=== PATIENT | female | born 1955 | race Caucasian/White ===

== ENCOUNTER → 2021-09-12 | Outpatient (CLI) | payer MEDICARE, SELFPAY ==
--- NOTE | 2021-09-12 08:35 | BI_ITS ---
MAMMOGRAPHY - BILATERAL SCREENING REASON FOR EXAM: Female, 66 years old. Routine annual screening examination. PERTINENT HISTORY: No personal history of breast cancer. Patient does report bruises on both breasts from recent falls. TECHNIQUE: Digital bilateral breast nahtaniel (3D mammographic acquisition) in the CC and MLO projections. 2-D mediolateral oblique (MLO) and craniocaudad (CC) views of both breasts were obtained. CAD: Full Field Digital Mammography with Computer Added Detection was performed. COMPARISON: Bilateral screening mammogram from 03/08/2015, 02/20/2010. FINDINGS: Breast Composition: The breasts are almost entirely fatty. There is a focal asymmetry in the right upper outer breast approximately 6 cm from the nipple. No suspicious calcifications. No other significant abnormalities are identified. BI/SCRN MAMM (CAD)W/NATHANIEL BILAT IMPRESSION: Further imaging evaluation recommended, as described above. (E) Recall Side: Right Breast ASSESSMENT CATEGORY: BIRADS Category 0: Incomplete. Need additional imaging evaluation. A letter regarding these results will be sent to the patient by the facility within 30 days. Approximately 10% of breast cancers are not detected by mammography. A normal mammogram should not delay biopsy of a clinically suspicious abnormality. [id number] Electronically Signed: Riley Paz, at 18:32 EDT ,
== END | disposition home or self-care (01) ==
PROVIDERS: PCP Obstetrics & Gynecology Gynecology; Visit Provider Obstetrics & Gynecology Gynecology
DX: Z12.31 Encounter for screening mammogram for malignant neoplasm of breast (principal)
CPT/HCPCS: 77063; 77067

== ENCOUNTER → 2021-09-14 | Outpatient (CLI) | payer MEDICARE, SELFPAY ==
--- NOTE | 2021-09-14 09:03 | BI_ITS ---
MAMMOGRAPHY - UNILATERAL DIAGNOSTIC: RIGHT BREAST REASON FOR EXAM: Female, 66 years old. Right breast focal asymmetry on screening mammogram. PERTINENT HISTORY: Patient reports that she had recent trauma both breasts with areas of bruising from a recent fall. No personal history of breast cancer. TECHNIQUE: Digital examination. Spot compression views of the focal asymmetry in the right upper outer quadrant were obtained. CAD was not performed on this study. COMPARISON: Screening mammogram from 09/12/2021. Right breast diagnostic ultrasound from same day. FINDINGS: Breast Composition: The breasts are almost entirely fatty. The 0.7 cm focal asymmetry in the right upper outer breast persists on spot compression views. Ultrasound was obtained and demonstrated a minimally focal dilated duct at the 11 o''clock position corresponding to the asymmetry with no correlating mass. Patient reports this is directly in the area of recent trauma and bruising. Although this is a probably benign finding related to recent trauma, given that this is a new finding since prior available mammogram from 03/08/2015, short-term follow-up with mammogram and ultrasound will be obtained in 6 months. No other significant abnormalities are identified. BI/DIAG MAMM W/CAD, UNILAT IMPRESSION: Likely benign unilateral diagnostic mammogram as detailed above. Short-interval follow-up recommended in six months. (C) Recall Side: Right Breast ASSESSMENT CATEGORY: BIRADS Category 3: Probably Benign - Short-Interval Follow-up Suggested. A letter regarding these results will be sent to the patient by the facility within 30 days. Approximately 10% of breast cancers are not detected by mammography. A normal mammogram should not delay biopsy of a clinically suspicious abnormality. Electronically Signed: Riley Paz, at 10:05 EDT ,
--- NOTE | 2021-09-14 09:03 | US_ITS ---
STUDY: ULTRASOUND BREAST - RIGHT REASON FOR EXAM: Female, 66 years old. Abnormal screening mammogram. TECHNIQUE: Axial and longitudinal images of the RIGHT breast were performed with a high resolution ultrasound transducer. # OF IMAGES: 48 COMPARISON: Diagnostic mammogram earlier today, screening mammogram 09/12/2021 FINDINGS: RIGHT Breast: Heterogeneous background echotexture. Multiple longitudinal and transverse ultrasound images of the upper outer quadrant right breast fail to demonstrate a discrete solid or cystic mass is consistent with normal breast parenchyma.: US/Breast Limited Unilateral IMPRESSION: Normal diagnostic mammogram. ASSESSMENT CATEGORY: BIRADS Category 1: Negative. A letter regarding these results will be sent to the patient by the facility within 30 days. Electronically Signed: Hernan Cook MD at 14:15 EDT ,
== END | disposition home or self-care (01) ==
PROVIDERS: PCP Obstetrics & Gynecology Gynecology; Visit Provider Obstetrics & Gynecology Gynecology
DX: R92.8 Other abnormal and inconclusive findings on diagnostic imaging of breast (principal)
CPT/HCPCS: 76642; 77065

== ENCOUNTER → 2022-04-27 | Outpatient (CLI) | payer MEDICARE, SELFPAY ==
--- NOTE | 2022-04-27 14:23 | BI_ITS ---
MAMMOGRAPHY - UNILATERAL DIAGNOSTIC: RIGHT BREAST REASON FOR EXAM: Female, 66 years old. 6 month follow-up examination. PERTINENT HISTORY: Abnormal screening mammogram. TECHNIQUE: Compression spot radiographs of the right breast were obtained. CAD: Full Field Digital Mammography with Computer Added Detection was performed. COMPARISON: Comparison is made with prior study 09/14/2021. FINDINGS: Breast Composition: The breasts are almost entirely fatty. There are no dominant masses or suspicious calcifications. The previously seen 7 mm asymmetry in the anterior slightly upper lateral aspect of the right breast is not seen at this time. No other significant abnormalities are identified. BI/DIAG MAMM W/CAD, UNILAT IMPRESSION: Negative unilateral diagnostic mammogram. Yearly followup mammogram recommended. (A) ASSESSMENT CATEGORY: BIRADS Category 2: Benign. A letter regarding these results will be sent to the patient by the facility within 30 days. Approximately 10% of breast cancers are not detected by mammography. A normal mammogram should not delay biopsy of a clinically suspicious abnormality. Electronically Signed: Alex Cesar MD at 15:33 EST ,
== END | disposition home or self-care (01) ==
PROVIDERS: PCP Obstetrics & Gynecology Gynecology; Visit Provider Obstetrics & Gynecology Gynecology
DX: R92.8 Other abnormal and inconclusive findings on diagnostic imaging of breast (principal); N60.19 Diffuse cystic mastopathy of unspecified breast
CPT/HCPCS: 77061; 77065; G0279

== ENCOUNTER → 2023-03-25 | Outpatient (CLI) | payer MEDICARE, SELFPAY ==
--- NOTE | 2023-03-25 13:30 | RAD_ITS ---
STUDY: X-RAY - LEFT TIBIA AND FIBULA REASON FOR EXAM: Female, 67 years old. Fall TECHNIQUE: 2 view(s) of the tibia and fibula were obtained. COMPARISON: None. FINDINGS: Normal visualized tibia. Normal visualized fibula. Soft tissue swelling. Questionable varicosities. Atherosclerotic calcification. RAD/Tibia & Fibula 2 Views IMPRESSION: Soft tissue swelling. Questionable varicosities. Electronically Signed: Alex Cesar MD at 14:27 EST ,
--- NOTE | 2023-03-25 13:30 | RAD_ITS ---
STUDY: X-RAY - RIGHT ANKLE REASON FOR EXAM: Female, 67 years old. Pain following a recent fall. TECHNIQUE: 3 view(s) of the ankle. COMPARISON: None. FINDINGS: Normal visualized distal tibia and fibula. Avulsion fracture of the lateral malleolus. Normal tibiotalar articulation and ankle mortise. Calcaneal spurs. The visualized subtalar, talonavicular, calcaneocuboid and tarsal articulations are normal. Lateral soft tissue swelling. RAD/Ankle min 3 Views IMPRESSION: Lateral soft tissue swelling about the fracture of the lateral malleolus. Electronically Signed: Alex Cesar MD at 14:26 EST ,
== END | disposition home or self-care (01) ==
LOC: MTLAB 13:29
PROVIDERS: PCP Obstetrics & Gynecology Gynecology; Referring Provider Physician Assistant; Visit Provider Physician Assistant
DX: S82.61XA Displaced fracture of lateral malleolus of right fibula, initial encounter for closed fracture (principal); W19.XXXA Unspecified fall, initial encounter
CPT/HCPCS: 73590; 73610

== ENCOUNTER 2025-01-27 20:23 | Emergency (ER) | payer MEDICARE, SELFPAY ==
[2025-01-27] VITALS (9 sets, daily range): BP systolic 159–174; BP diastolic 68–102; PULSE 68–85; RESP 16–20; TEMP 36.1–36.6; O2SAT 97–100; BMI 34.6
--- NOTE | 2025-01-27 21:05 | PCA ---
no old ekg
[2025-01-27 21:16] LABS: Hematocrit 40.7 % (37-47); Hemoglobin 13.7 g/dL (12.0-15.0); Immature Granulocytes Count 0.020 X10^3/uL (0.0-0.0); Mean Corp Hgb Conc 33.7 g/dL (32-36); Mean Corpuscular Volume 89.3 fL (81-99); Mean Platelet Vol. 9.8 fl (6.2-12.0); NRBC Flagged by Analyzer 0 % (0-5); Platelet Count 259 K/mm3 (150-450); RBC Distribution Width CV 13.3 % (11.6-14.6); RBC Distribution Width SD 43.6 fl (35.1-43.9); Red Blood Count 4.56 M/mm3 (4.2-5.4); White Blood Count 7.6 K/mm3 (4.4-11.0)
--- NOTE | 2025-01-27 21:25 | RAD_ITS ---
PROCEDURE: CHEST 1 VIEW (PORTABLE) 01/27/2025 REASON FOR EXAM: CHEST PAIN TECHNIQUE: Frontal view of the chest. COMPARISON: None FINDINGS: Hardware: Monitoring electrodes overlying chest wall. Heart: The heart size is normal. Lungs: Bibasilar atelectasis. Bones: Degenerative changes of bilateral shoulder joints. RAD/Chest 1 View (Portable) IMPRESSION: No acute cardiopulmonary abnormality. Reading Location: [id number]
[2025-01-27 21:39] LABS: Anion Gap 12 (5-15); BUN 12 mg/dL (4-19); BUN/Creat Ratio 15.2 RATIO (10-20); Calcium,Total 9.7 mg/dL (7.6-11.0); Carbon Dioxide 28.1 mmol/L (21.0-32.0); Chloride 98 mmol/L (98-108); Estimated Creatinine Clearance 71.11 ml/min (50-250); Glucose 95 mg/dL (70-99); Potassium 3.4 mmol/L (3.3-5.1); Troponin T High Sensitivity 8 ng/L (<=14)
--- NOTE | 2025-01-27 22:20 | EDS_ITS ---
HPI History of Present Illness Chief Complaint: Chest Pain Narrative Narrative: 69-year-old female past medical history of hypertension and gout presents with right-sided chest pain that she has had for the last 2 days. She states her symptoms began on Saturday. States she had an episode of nausea and vomiting which she usually does not have. She states that she did not even vomit during her with her daughter. This started the onset of a large amount of symptoms including right sided chest pain. She states she was having back pain as well. Her nausea and vomiting resolved. She does not have any abdominal pain. No fevers or chills. She states she may have felt slightly short of breath over the last 2 days. She denies any DVT or PE risk factors. The pain is mainly on the right side of her chest. She denies any diaphoresis. No exacerbating or alleviating factors. It is not worse with exertion as she took 2 walks but there was no significant change in her discomfort. [facility] Medical History Closed fracture of right distal fibula Right ankle sprain Abrasion, left lower leg, initial encounter Contusion of left lower extremity Contact with and (suspected) exposure to other viral communicable diseases Acute sinusitis, unspecified Colon cancer Home Medications ?Medication ?Instructions ?Recorded ?Last Taken ?Type allopurinol 100 mg tablet 100 mg PO DAILY 12/10/22 Unk nown History hydrochlorothiazide 50 mg tablet 50 mg PO DAILY Unknown History metoprolol tartrate 50 mg tablet 50 mg PO BID 01/27/25 Unknown History Allergy/AdvReac Type Severity Reaction Status Date / Time grass pollen Allergy other Verified 01/27/25 20:25 house dust Allergy other Verified 01/27/25 20:25 mold Allergy Mild other Uncoded 03/25/23 13:21 Social History Smoking Status: Never smoker ROS ROS ED ROS Narrative Review of systems positive for right-sided chest pain. 1 episode of nausea and vomiting 2 to 3 days ago. No diaphoresis. Minimal shortness of breath. No fevers or chills, no cough, no abdominal pain. No exacerbating or alleviating factors. No leg swelling. EXAM Physical Exam Narrative Exam Narrative: Afebrile. Vital signs noted. Nontoxic-appearing. Cardiovascular examination reveals regular rate and rhythm. Lungs clear to auscultation bilaterally. Abdomen soft and nontender with positive bowel sounds. No guarding or rebound. Negative Brown sign. Neurological examination nonfocal lateralizing. No appreciable pedal edema bilaterally. Const Vital Signs: 01/27/25 20:25 01/27/25 20:50 01/27/25 21:00 Temperature 97 F L Temperature Source Temporal Pulse Rate 85 71 Respiratory Rate 18 16 Respiratory Effort Normal Non-Labored Blood Pressure 171/92 H 163/88 H Blood Pressure Mean 118 111 Pulse Ox 97 98 Oxygen Delivery Method Room Air 01/27/25 21:02 01/27/25 21:30 01/27/25 21:45 Temperature Temperature Source Pulse Rate 73 82 Respiratory Rate 19 H 19 H Respiratory Effort Blood Pressure 171/86 H 167/102 H Blood Pressure Mean 111 120 Pulse Ox 99 98 Oxygen Delivery Method Room Air 01/27/25 22:00 01/27/25 22:15 01/27/25 22:30 Temperature Temperature Source Pulse Rate 72 68 Respiratory Rate 20 H 17 Respiratory Effort Blood Pressure 174/85 H 173/80 H 159/94 H Blood Pressure Mean 112 101 111 Pulse Ox 99 100 Oxygen Delivery Method 01/27/25 23:00 Temperature Temperature Source Pulse Rate 72 Respiratory Rate 18 Respiratory Effort Blood Pressure 164/68 H Blood Pressure Mean 100 Pulse Ox 100 Oxygen Delivery Method Room Air MDM MDM MDM Narrative Medical decision making narrative: Differential diagnosis includes but not limited to pneumonia versus pneumothorax versus ACS versus pulmonary embolism. I have a low clinical suspicion for aortic dissection. She has equal pulses bilaterally radially. She does have elevated blood pressure but states that she did not realize she is supposed to be taking her metoprolol twice a day instead of once a day. She was given hydralazine 5 mg intravenously. EKG was obtained and interpreted by myself independently as normal sinus rhythm at 69 bpm without ectopy or acute ST changes. No STEMI. Chest x-ray interpreted by myself independently shows no pneumothorax or pneumonia. I do not feel antibiotics are indicated. I reviewed the radiology report which confirms my independent interpretation. Her laboratory work was obtained and reviewed and she has a normal white count of 7.6 with hemoglobin normal at 13.7, hematocrit 40.7, platelet count normal at 259. Sodium normal at 138 with potassium 3.4, CO2 28.1, BUN of 12 and creatinine 0.78. Glucose normal at 95. Initial high-sensitivity troponin is 8. Upon repeat examination while waiting for her 2-hour troponin, she states that she feels well. She was advised that she should be taking her metoprolol twice a day as initially written. I reviewed her repeat troponin at 2 hours and it is 7. I feel she has been ruled out for ACS with biomarkers. At this point in time, I do feel she can be discharged to follow-up with her primary care provider. Return instructions to the emergency department were reviewed. Disposition is discharged home in stable condition. History & Record Review Discussion w/independent historian: Patient Additional record(s) reviewed:: Prior ED visit (No prior ED visits) Lab Data Attestation: I reviewed the patient's lab results. Labs: Laboratory Results - last 24 hr 01/27/25 01/27/25 21:07 23:05 WBC 7.6 RBC 4.56 Hgb 13.7 Hct 40.7 MCV 89.3 MCH 30.0 MCHC 33.7 RDW Std Deviation 43.6 RDW Coeff of David 13.3 Plt Count 259 MPV 9.8 Immature Gran % (Auto) 0.300 Neut % (Auto) 52.8 Lymph % (Auto) 33.2 Howard % (Auto) 11.4 H Eos % (Auto) 1.8 Baso % (Auto) 0.5 Absolute Neuts (auto) 4.0 Absolute Lymphs (auto) 2.53 Nucleated RBC % 0 Sodium 138 Potassium 3.4 Chloride 98 Carbon Dioxide 28.1 Anion Gap 12 BUN 12 Creatinine 0.78 Estim Creat Clear Calc 71.11 Est GFR (MDRD) Non-Af 83 BUN/Creatinine Ratio 15.2 Glucose 95 Calcium 9.7 Troponin T High Sens 8 Troponin T Hi Sens 2 Hr 7 Radiography Chest X-Ray - ED: 1 View, Read by ED Physician, Read by Radiologist and No Acute Disease Diagnostic Testing: Clinical Impression(s) from Imaging Studies Chest X-Ray 01/27/25 21:25 IMPRESSION: No acute cardiopulmonary abnormality. Reading Location: [facility] Discharge Plan Triage Chief Complaint: Chest Pain ED Provider: Geovany Oconnell Dx/Rx/DC Orders Prescriptions: No Action allopurinol 100 mg tablet 100 mg PO DAILY hydrochlorothiazide 50 mg tablet 50 mg PO DAILY metoprolol tartrate 50 mg tablet 50 mg PO BID Primary Care Provider: Elizabeth Livingston Referrals: Elizabeth Livingston MD [Primary Care Provider, Medical] Print Language: Sammarinese
[2025-01-27 23:40] LABS: Troponin T High Sens 2 HR 7 ng/L (<=14)
== END 2025-01-27 23:48 | disposition home or self-care (01) ==
PROVIDERS: Emergency Provider Emergency Medicine; PCP Obstetrics & Gynecology Gynecology; Visit Provider Emergency Medicine
DX: R07.9 Chest pain, unspecified (principal); I10 Essential (primary) hypertension; M10.9 Gout, unspecified; Z79.899 Other long term (current) drug therapy
CPT/HCPCS: 71045; 80048; 84484; 85025; 93005; 96374; 99284; A4216